=== PATIENT | female | born 1990 | race Hispanic/Latino ===

== ENCOUNTER 2017-02-04 07:35 | Emergency (ER) | payer BC, SELFPAY ==
--- NOTE | 2017-02-04 08:39 | RAD ---
THREE VIEWS OF THE LEFT ANKLE: INDICATION: Ankle injury yesterday. FINDINGS: No acute fracture or subluxation is present. Ankle mortise and talar dome are preserved. There is mild soft tissue swelling overlying the lateral aspect of the ankle. IMPRESSION: No acute osseous abnormality. POS: [facility]
== END 2017-02-04 08:42 | disposition home or self-care (01) ==
LOC: ERS 07:35
DX: S93.402A Sprain of unspecified ligament of left ankle, initial encounter (principal); F17.210 Nicotine dependence, cigarettes, uncomplicated; X50.1XXA Overexertion from prolonged static or awkward postures, initial encounter

== ENCOUNTER 2018-02-08 23:39 | Emergency (ER) | payer BC ==
[2018-02-09 00:11] LABS: #Basophils 0.1 thou/uL (0.0-0.2); #Eosinphils 0.2 thou/uL (0.0-0.7); #Lymphocytes 4.7 thou/uL (1.20-3.40); #Monocytes 0.6 thou/uL (0.11-0.59); %Basophils 0.5 % (0.0-1.0); %Eosinophils 1.7 % (0.0-10.0); %Lymphocytes 36.9 % (21.0-51.0); %Monocytes 5.1 % (0.0-10.0); %Neutrophils 55.8 % (42.0-75.0); Hemoglobin 13.6 g/dL (12.0-16.0); Mean Corpuscular HGB CONC 33.2 g/dL (32.0-36.0); Mean Corpuscular Hemoglobin 30.5 pg (27.0-31.0); Mean Platelet Volume 8.3 fL (7.4-10.4); Platelet Count 264 thou/uL (130-400); RBC Distribution Width 12.3 % (11.5-14.5); Red Blood Cell (RBC) Count 4.44 mill/uL (4.20-5.40); White Blood Cell (WBC) Count 12.6 thou/uL (4.8-10.8)
[2018-02-09 00:33] LABS: ALT (SGPT) 15 U/L (8-55); AST (SGOT) 12 U/L (5-34); Albumin 3.9 g/dL (3.5-5.0); Alkaline Phosphatase 69 U/L (40-150); Anion Gap 9 mmol/L (10-20); BUN (Urea Nitrogen) 11 mg/dL (7.0-18.7); Bilirubin, Total 0.2 mg/dL (0.2-1.2); Calc. Creatinine Clearance 0 mL/min (70-130); Carbon Dioxide 27 mmol/L (22-29); Chloride 107 mmol/L (98-107); Estimated GFR-MDRD Greater than 90; Globulin 2.8 g/dL (2.4-3.5); Glucose 95 mg/dL (70-105); Potassium 3.9 mmol/L (3.5-5.1); Protein, Total 6.7 g/dL (6.0-8.3); Sodium 139 mmol/L (136-145)
[2018-02-09 02:04] LABS: Bilirubin Negative (Negative); Blood, Urine Small (Negative); Clarity TURBID (Clear); Glucose, Urine (Dipstick) Negative (Negative); Leukocyte Negative (Negative); Nitrite Negative (Negative); Protein, Urine (Dipstick) Negative (Neg-Trace); Specific Gravity, Urine 1.018 (1.002-1.036); Urobilinogen 0.2 mg/dL (0.2-1.0); pH, Urine 7.5 (5.0-9.0)
[2018-02-09 02:07] LABS: Bacteria/HPF Rare-Few HPF (None Seen); Hyaline Casts/LPF 0-3 HYALINE CAST LPF (0-3 Hyaline); Pathc Cast-AUWi Flag 0.29 (0-2.49); Squamous Epithelial 0-3 HPF (0-3); WBC/HPF 0-3 HPF (0-3)
[2018-02-09 02:26] LABS: Crystals/HPF 1+ AMORPH PHOS HPF (Negative); RBC/HPF 0-3 HPF (0-3)
--- NOTE | 2018-02-09 07:39 | ULT ---
PELVIC ULTRASOUND WITH CELIS SCALE AND DOPPLER COLOR FLOW IMAGING TRANSVAGINAL PELVIC ULTRASOUND PERFORMED: Date: 02/09/18 CLINICAL HISTORY: Vaginal bleeding. FINDINGS: Within the uterus, there is an oval-shaped region of decreased echogenicity indicating gestational sa c with internal pole, which corresponds to an approximately 6 week/2 days gestation. No c ardiac activity is present. There is no significant abnormality of either visualized ovary. IMPRESSION: Findings indicative of an early intrauterine gestation, approximately 6 weeks/2 days of gestational a ge on the basis of crown-rump length. No cardiac activity is elicited, which is concerning for a failed first trimester . Recommend correlation with beta HCG values and clinical assessmen t. As necessary short-term imaging follow-up may be obtained, as well, for confirmation. CODE T. POS: [facility]
== END 2018-02-09 02:45 | disposition home or self-care (01) ==
LOC: ERS 23:39
DX: O20.0 Threatened abortion (principal); F17.210 Nicotine dependence, cigarettes, uncomplicated; O99.331 Smoking (tobacco) complicating pregnancy, first trimester; Z3A.10 10 weeks gestation of pregnancy
CPT/HCPCS: 36415; 76856; 80053; 81003; 81015; 84702; 85025; 86900; 86901

== ENCOUNTER 2018-11-27 17:30 | Day surgery (SDC) | payer BC, OTHER ==
[2018-11-27 18:14] VITALS: BMI 39.4
[2018-11-27 18:41] LABS: Clarity Clear (Clear); Glucose, Urine (Dipstick) Normal (Negative); Leukocyte Negative Leu/uL (Negative); Nitrite Negative (Negative); Protein, Urine (Dipstick) Negative (Neg-Trace); Urobilinogen Normal mg/dL (Less than 2)
[2018-11-27 18:42] LABS: Bacteria/HPF 1+ HPF (None Seen); Bilirubin Negative (Negative); Blood, Urine Negative (Negative); RBC/HPF 0-3 HPF (0-3); WBC/HPF 0-3 HPF (0-3)
[2018-11-27 18:48] LABS: Hemoglobin 12.5 g/dL (12.0-16.0); Mean Corpuscular HGB CONC 35.2 g/dL (32.0-36.0); Mean Corpuscular Hemoglobin 30.5 pg (27.0-31.0); Mean Corpuscular Volume 86.7 fL (78.0-98.0); Platelet Count 206 thou/uL (130-400); RBC Distribution Width 12.2 % (11.5-14.5); Red Blood Cell (RBC) Count 4.09 mill/uL (4.20-5.40); White Blood Cell (WBC) Count 10.4 thou/uL (4.8-10.8)
[2018-11-27 19:08] LABS: ALT (SGPT) Less than 7 U/L (8-55); AST (SGOT) 7 U/L (5-34); Albumin 3.2 g/dL (3.5-5.0); Alkaline Phosphatase 164 U/L (40-150); Anion Gap 12 mmol/L (10-20); BUN (Urea Nitrogen) 5 mg/dL (7.0-18.7); Bilirubin, Total 0.2 mg/dL (0.2-1.2); Calc. Creatinine Clearance 236 mL/min (70-130); Calcium 9.5 mg/dL (7.8-10.44); Carbon Dioxide 23 mmol/L (22-29); Chloride 107 mmol/L (98-107); Estimated GFR-MDRD Greater than 90; Globulin 3.2 g/dL (2.4-3.5); Glucose 83 mg/dL (70-105); Potassium 3.6 mmol/L (3.5-5.1); Protein, Total 6.4 g/dL (6.0-8.3); Sodium 138 mmol/L (136-145)
--- NOTE | 2018-11-28 07:58 | SS ---
DATE OF ADMISSION: 11/27/2018 DATE OF DISCHARGE: 11/27/2018 REGULAR PHYSICIAN: Bettie Mares MD EVALUATING PHYSICIAN: Jf Garcia MD. CHIEF COMPLAINT: Elevated blood pressure at work. HISTORY OF PRESENT ILLNESS: Ms. Vincent is a 28-year-old , AB4 with an estimated date of confinement of 01/18/2019, who presents complaining of elevated blood pressure at work to 164/103. 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 She has had an intermittent headache, but denies visual changes or right upper quadrant pain. She reports active movement. Her care has been with Dr. Bettie Mares and has been uncomplicated. PAST OBSTETRICAL HISTORY: Four miscarriages. PAST MEDICAL HISTORY: None. PAST SURGICAL HISTORY: Appendectomy and cholecystectomy. CURRENT MEDICATIONS: vitamins. ALLERGIES: NO KNOWN ALLERGIES. SOCIAL HISTORY: Denies tobacco, alcohol, or drug use. FAMILY HISTORY: Unremarkable. REVIEW OF SYSTEMS: Denies nausea, vomiting, fever, chills, right upper quadrant pain, or vaginal bleeding. PHYSICAL EXAMINATION: VITAL SIGNS: Serial blood pressures are 111/66, 110/65, and 105/60. GENERAL: She is pleasant and in no acute distress. ABDOMEN: Soft, nontender, and gravid. heart rate tracing is reassuring with spontaneous accelerations. No decelerations were seen. No regular uterine activity is seen. LABORATORY DATA: White count 10.4, hemoglobin and hematocrit 12.5 and 35.5, platelet count 206,000. BUN 5, creatinine 0.55, total bilirubin 0.2, AST 7, ALT less than 7. Urinalysis shows a specific gravity of 1.009 and it is negative for protein, negative for ketones, negative for blood, negative nitrites, negative for leukocyte esterase. ASSESSMENT: 1. A 32 and 4/7th week intrauterine . 2. No evidence of preeclampsia at this time. PLAN: The patient will be dismissed to home. Preeclampsia precautions were again reviewed with her in detail. She states she has an appointment with Dr. Mares next week. Dr. Mares was notified of this evaluation. Job ID: [id number]
== END 2018-11-27 20:35 | disposition home or self-care (01) ==
LOC: L&D/OP 17:30
PROVIDERS: ATTEND Obstetrics & Gynecology
DX: O99.89 Other specified diseases and conditions complicating pregnancy, childbirth and the puerperium (principal); R03.0 Elevated blood-pressure reading, without diagnosis of hypertension; R51 Headache; Z3A.32 32 weeks gestation of pregnancy
CPT/HCPCS: 36415; 80053; 81003; 85027; 99283

== ENCOUNTER 2019-01-09 11:35 | Inpatient (IN) | payer BC, OTHER ==
[2019-01-09] MEDS ORDERED: hydrALAZINE 20 MG/ML VIAL SLOW IVP PRN (11:49)
[2019-01-09] MEDS ORDERED: Lidocaine 1% (PF) 30 ML VIAL SC PRN (11:49)
[2019-01-09] MEDS ORDERED: Ondansetron PF 4 MG/2 ML Vial IVP PRN (11:49)
[2019-01-09] MEDS ORDERED: HYDROcodone/Acetaminophen 5/325 mg Tablet PO PRN ×2 (11:49)
[2019-01-09] MEDS ORDERED: Docusate 100 MG CAP PO PRN (11:49)
[2019-01-09] MEDS ORDERED: Ibuprofen 800 MG TAB PO PRN (11:49)
[2019-01-09] MEDS ORDERED: NS / Oxytocin 40 units/1000ml 1,000 ML IV PRN (11:49)
[2019-01-09] MEDS ORDERED: Promethazine HCl 25 MG/ML VIAL IM PRN (11:49)
[2019-01-09] MEDS ORDERED: NS w/ Oxytocin 10 units 500 ML IV SCH (12:00)
[2019-01-09] MEDS: Lactated Ringer's 1,000 ML IV SCH ×2 (12:06→19:00)
[2019-01-09 12:18] VITALS: BMI 42.0
[2019-01-09 12:36] LABS: Hemoglobin 12.9 g/dL (12.0-16.0); Mean Corpuscular HGB CONC 34.7 g/dL (32.0-36.0); Mean Corpuscular Hemoglobin 29.9 pg (27.0-31.0); Mean Corpuscular Volume 86.1 fL (78.0-98.0); Mean Platelet Volume 10.4 fL (7.4-10.4); Platelet Count 186 thou/uL (130-400); RBC Distribution Width 13.1 % (11.5-14.5); Red Blood Cell (RBC) Count 4.31 mill/uL (4.20-5.40); White Blood Cell (WBC) Count 9.2 thou/uL (4.8-10.8)
[2019-01-09 13:16] LABS: HBSAg Index 0.13 S/CO (0-0.99); Hep B Surf Ag Non-Reactive S/CO (NonReactive); Syphilis Antibody Nonreactive (Nonreactive); Syphilis Antibody Index 0.03 S/CO (<1.00 Non-Reactive)
[2019-01-09] MEDS: Butorphanol Tartrate 1 MG/ML VIAL SLOW IVP PRN (22:51)
[2019-01-10] MEDS: Butorphanol Tartrate 1 MG/ML VIAL SLOW IVP PRN ×2 (00:19→02:29)
[2019-01-10] MEDS: Lactated Ringer's 1,000 ML IV SCH ×4 (02:55→17:50)
[2019-01-10] MEDS ORDERED: Fentanyl 4 mcg/Bup 0.1% Cadd 100 ML ONE (03:06)
[2019-01-10] MEDS ORDERED: Bicitra 30 ML UDCUP ONE (08:34)
[2019-01-10] MEDS ORDERED: CEFAZOLIN 2 GM in Premix Bag 1 BAG IVPB SCH (09:00)
[2019-01-10] MEDS ORDERED: Ketorolac Tromethamine 30 MG/ML VIAL ONE ×2 (09:10→14:18)
[2019-01-10] MEDS ORDERED: Ondansetron PF 4 MG/2 ML Vial ONE ×2 (09:10→14:18)
[2019-01-10] MEDS ORDERED: Lidocaine 2% 10 ML INJ ONE (09:10)
[2019-01-10] MEDS ORDERED: Dexamethasone 4 mg/ml Vial ONE (09:10)
[2019-01-10] MEDS ORDERED: PHENYLEPHRINE-NS 100 MCG/ML 10 ML SYRINGE ONE (09:12)
[2019-01-10] MEDS ORDERED: MORPHINE 5 MG/10 ML PF VIAL ONE (09:12)
[2019-01-10] MEDS ORDERED: diphenhydrAMINE 50 MG/ML VIAL ONE ×2 (09:29→14:18)
[2019-01-10] MEDS ORDERED: Oxytocin 10 UNITS/ML VIAL ONE (09:31)
[2019-01-10] MEDS ORDERED: Fentanyl 100 MCG/2 ML VIAL ONE (09:35)
[2019-01-10] MEDS ORDERED: Ketamine 50 MG/ML (10ML VIAL) ONE (09:36)
[2019-01-10] MEDS ORDERED: Midazolam HCl 2 mg/2 ml Vial ONE (09:50)
[2019-01-10] MEDS ORDERED: Bupivacaine 0.25% HCL 30 ML VIAL ONE (10:06)
[2019-01-10] MEDS ORDERED: Bupivacaine/Epinephrine 0.5% 10 ML VIAL ONE (10:12)
[2019-01-10] MEDS ORDERED: diphenhydrAMINE 50 MG/ML VIAL IVP PRN (10:17)
[2019-01-10] MEDS ORDERED: L&D-Morphine 4 MG/ML VIAL SLOW IVP PRN (10:17)
[2019-01-10] MEDS ORDERED: HYDROmorphone 2 MG/ML VIAL SLOW IVP PRN (10:17)
[2019-01-10] MEDS ORDERED: Promethazine HCl 25 MG/ML VIAL IM PRN (10:17)
[2019-01-10] MEDS ORDERED: Ondansetron PF 4 MG/2 ML Vial IVP PRN (10:17)
[2019-01-10] MEDS ORDERED: Meperidine HCl/PF 25 MG/ML VIAL SLOW IVP PRN (10:17)
[2019-01-10] MEDS ORDERED: Naloxone HCl 0.4 mg/ml Vial IV PRN (10:17)
[2019-01-10] MEDS ORDERED: Ondansetron HCl/PF 4 MG/2 ML Vial IVP PRN (10:17)
[2019-01-10] MEDS ORDERED: Promethazine HCl 25 MG SUPP PR PRN (10:17)
[2019-01-10] MEDS ORDERED: Naloxone HCl 0.4 mg/ml Vial IVP PRN ×2 (10:17)
[2019-01-10] MEDS ORDERED: Communication Order-Pharmacy FS SCH (10:30)
[2019-01-10] MEDS ORDERED: hydrALAZINE 20 MG/ML VIAL SLOW IVP PRN (11:09)
[2019-01-10] MEDS ORDERED: Adacel (T-DAP) 0.5 ML SYRINGE IM ONE (11:09)
[2019-01-10] MEDS ORDERED: HYDROcodone/Acetaminophen 5/325 mg Tablet PO PRN (11:09)
[2019-01-10] MEDS: Ampicillin 2 GM in Sodium Chloride 0.9% 100 ML IVPB SCH ×2 (12:40→17:50)
[2019-01-10] MEDS: Gentamicin Sulfate 360 MG in Sodium Chloride 0.9% 100 ML IVPB SCH (13:54)
[2019-01-10] MEDS ORDERED: Ibuprofen 800 MG TAB PO SCH (14:00)
[2019-01-10] MEDS ORDERED: Dexamethasone 20 MG/5 ML VIAL ONE (14:18)
[2019-01-10] MEDS: Ketorolac Tromethamine 30 MG/ML VIAL IVP SCH ×2 (14:47→17:51)
--- NOTE | 2019-01-10 17:37 | OP ---
DATE OF PROCEDURE: 01/10/2019 PREOPERATIVE DIAGNOSES: 1. A 29-year-old, G4, P0-0-3-0, at 39+2 with induction of labor. 2. Premature rupture of membranes, that is prolonged. The patient reports possible rupture on 01/06. 3. GBS negative. 4. 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 POSTOPERATIVE DIAGNOSES: 1. A 29-year-old, G4, P0-0-3-0, at 39+2 with induction of labor. 2. Premature rupture of membranes, that is prolonged. The patient reports possible rupture on 01/06. 3. GBS negative. 4. 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 5. Live born female with Apgars of 8 and 9 at 1 and 5 minutes respectively. 6. Chorioamnionitis by odor with fluid rupture and amniotomy. 7. Arrest of descent and dilation. 8. Non-reassuring for heart tracing. ANESTHESIA: Epidural with combination re-dose. SURGEON: Bettie Mares MD. TEACHER VOCAL: Rosi Pierre DO. ESTIMATED BLOOD LOSS: 1500 mL. QUANTITATIVE BLOOD LOSS: 1425 mL. CLINICAL HISTORY: This patient is a 29-year-old, G4, P0-0-3-0, who presented as a direct admission from the office for rupture of membranes. The patient was evaluated by the office staff and had a positive test, but noted that she had started seeing some leakage of fluid on 01/06. She was admitted on 01/09 and was noted to have a forebag, this was ruptured, for clear fluid without any odor. The patient was afebrile. She was placed on Pitocin and her cervical exam was 1.5, 80% effaced, and -2 station. The patient progressed with seemingly adequate contractions. She had a desire for no epidural, and when she was rechecked, was noted to be unchanged. An IUPC was placed and noted adequate contractions. The patient continued to be afebrile and have clear fluid. She was allowed to continue, and during the process of placing the IUPC, her cervix was stretchy to 4 cm. She eventually requested an epidural for maternal analgesia, and upon the subsequent check, she was 5 cm, however, from that 2 a.m. check to approximately 8:30 in the morning, she did not make any change despite adequate contractions. The patient was counseled on an arrest of descent and need for a section. She also was having a category 1 to category 2 tracing with intermittent late decelerations and minimal to moderate variability. The risks, benefits, and possible complications were discussed and the patient wished to proceed. DETAILS OF PROCEDURE: The patient was taken to the operating room where her epidural was redosed. She was tested for adequate anesthesia and anesthesia was noted to be moderate. The incision was made on the lower pelvic brim border in a Pfannenstiel manner after the patient was prepped and draped in the usual sterile fashion. This incision was taken down to the fascia. The fascia was nicked in the midline and extended out bilaterally with sharp and blunt dissection. The Yonathan clamps were used x2 to elevate the rectus muscles off the superior border, and in similar fashion, the pyramidalis and rectus muscles were released off the inferior portion. The abdominal muscles were in the midline. The patient noted discomfort on her left side, and anesthesia was given to make her more comfortable. Once the peritoneum was breached, this incision was extended with traction and sharp dissection and Bovie cautery. The bladder blade was placed. The bladder flap was then created and reduced down deflecting the bladder away from the incision. The incision with a new scalpel was made over the uterine surface in the lower uterine segment and carried down to the amnion. Clear fluid was again noted. The incision was then extended and the surgeon's hand was placed into the incision and the infant was delivered through the incision. The posterior shoulder followed by the anterior shoulder followed by the remainder of the infant's body was delivered. There was noted to be a cord around the neck and arm and the baby delivered through this. The infant cried spontaneously. The cord was doubly clamped and cut. The was stimulated and sent off to the neonatology team in attendance to the delivery. A cord gas was obtained and the cord blood was taken. It was noted that there was an odor consistent with chorioamnionitis in the amniotic fluid. Cord gas was recorded as 7.276 with the pCO2 was 52.9. The base excess and bicarb were pending at the time of dictation. The placenta was manually removed and sent for pathology. The uterus was then exteriorized and cleansed of all debris. Two ring forceps were placed over the uterine incision that was bleeding profusely. The uterine incision was then closed with a running locking fashion and then several [id number] were placed to control bleeding. Once the bleeding stopped, the gutters were cleansed of all debris. The bladder flap was then reapproximated in a running fashion with excellent hemostasis, and then the Seprafilm was placed over this anterior surface of the uterus. The uterus was placed back into the abdomen and the peritoneum was closed in a running fashion. The rectus muscles were then closed and reapproximated with [id number] sutures, and irrigation was performed over the rectus muscles. There was still bleeding from perforating blood vessels noted, so these were cauterized with the Bovie cautery. The fascia was then closed in a running fashion with excellent hemostasis, and the subcutaneous tissues were then copiously irrigated. They were then reapproximated with 2-0 plain interrupted sutures, and the skin was then closed with a 4-0 Navjot needle with excellent hemostasis. The incision was reinforced with a Steri-Strips and Mastisol, and the pressure dressing was placed over the incision. The patient tolerated the procedure well and was able to recover in her labor room in satisfactory condition. The needle, sponge, lap, and instrument counts were correct x2 at the end of the procedure. There were no other issues surrounding this delivery. The patient was transferred to her recovery room and started on ampicillin and gentamicin for coverage for chorioamnionitis. There were no other issues with this procedure. Job ID: [id number]
[2019-01-10] MEDS: Ferrous Sulfate 325 MG TAB PO SCH (21:45)
[2019-01-10] MEDS: Docusate Calcium (SURFAK) 240 MG CAP PO SCH (21:47)
[2019-01-11] MEDS: Ketorolac Tromethamine 30 MG/ML VIAL IVP SCH ×2 (00:30→06:18)
[2019-01-11] MEDS: Ampicillin 2 GM in Sodium Chloride 0.9% 100 ML IVPB SCH ×2 (00:30→06:28)
[2019-01-11] MEDS: Lactated Ringer's 1,000 ML IV SCH ×3 (06:21→21:01)
[2019-01-11] MEDS: Simethicone Chewable 80 MG TAB PO PRN ×2 (06:25→19:45)
[2019-01-11 07:16] LABS: Hemoglobin 9.3 g/dL (12.0-16.0); Mean Corpuscular HGB CONC 34.4 g/dL (32.0-36.0); Mean Corpuscular Hemoglobin 30.7 pg (27.0-31.0); Mean Corpuscular Volume 89.1 fL (78.0-98.0); Mean Platelet Volume 9.8 fL (7.4-10.4); Platelet Count 167 thou/uL (130-400); RBC Distribution Width 13.3 % (11.5-14.5); Red Blood Cell (RBC) Count 3.04 mill/uL (4.20-5.40); White Blood Cell (WBC) Count 18.3 thou/uL (4.8-10.8)
[2019-01-11 07:28] LABS: Anion Gap 12 mmol/L (10-20); BUN (Urea Nitrogen) 7 mg/dL (7.0-18.7); Calc. Creatinine Clearance 236 mL/min (70-130); Calcium 8.4 mg/dL (7.8-10.44); Carbon Dioxide 21 mmol/L (22-29); Chloride 106 mmol/L (98-107); Estimated GFR-MDRD Greater than 90; Glucose 82 mg/dL (70-105); Potassium 3.8 mmol/L (3.5-5.1); Sodium 135 mmol/L (136-145)
[2019-01-11] MEDS: Ferrous Sulfate 325 MG TAB PO SCH ×2 (09:22→21:34)
[2019-01-11] MEDS: Docusate Calcium (SURFAK) 240 MG CAP PO SCH ×2 (09:49→21:34)
[2019-01-11] MEDS: Prenatal Vitamin 1 TAB PO SCH (09:49)
[2019-01-11] MEDS: HYDROcodone/Acetaminophen 5/325 mg Tablet PO PRN ×2 (12:49→22:28)
[2019-01-11] MEDS: Gentamicin Sulfate 360 MG in Sodium Chloride 0.9% 100 ML IVPB SCH (12:50)
[2019-01-11] MEDS: Ibuprofen 800 MG TAB PO SCH ×2 (14:15→21:34)
[2019-01-11] MEDS: Lanolin Ointment 7 GM TUBE TOP PRN (19:45)
[2019-01-12] MEDS: Simethicone Chewable 80 MG TAB PO PRN (01:23)
[2019-01-12] MEDS: Lanolin Ointment 7 GM TUBE TOP PRN (01:31)
[2019-01-12] MEDS: Lactated Ringer's 1,000 ML IV SCH ×2 (04:11→11:35)
[2019-01-12] MEDS: HYDROcodone/Acetaminophen 5/325 mg Tablet PO PRN ×2 (04:18→13:53)
[2019-01-12] MEDS: Ibuprofen 800 MG TAB PO SCH ×2 (05:44→13:41)
[2019-01-12] MEDS: Docusate Calcium (SURFAK) 240 MG CAP PO SCH (09:24)
[2019-01-12] MEDS: Prenatal Vitamin 1 TAB PO SCH (09:24)
[2019-01-12] MEDS: Ferrous Sulfate 325 MG TAB PO SCH (09:25)
[2019-01-12 11:36] VITALS: BP 100/55; TEMP 97.9
== END 2019-01-12 18:25 | disposition home or self-care (01) | DRG 786 ==
LOC: L&D-LIB 11:35 → 3SE 01-10 19:08
PROVIDERS: ADMIT Obstetrics & Gynecology; ATTEND Obstetrics & Gynecology
PROC: 10D00Z1 Extraction of Products of Conception, Low, Open Approach (ICD-10-PCS; principal; 2019-01-10)
PROC: 3E033VJ Introduction of Other Hormone into Peripheral Vein, Percutaneous Approach (ICD-10-PCS; 2019-01-10)
DX: O76 Abnormality in fetal heart rate and rhythm complicating labor and delivery (principal); O41.1230 Chorioamnionitis, third trimester, not applicable or unspecified; D62 Acute posthemorrhagic anemia; Z37.0 Single live birth; O62.1 Secondary uterine inertia; Z3A.39 39 weeks gestation of pregnancy; O99.02 Anemia complicating childbirth
CPT/HCPCS: 36415; 51702; 80048; 80170; 82805; 85027; 86780; 86850; 86900; 86901; 87340; 88307; J0290; J0595; J0690; J1100; J1200; J1580; J1885; J2001; J2250; J2274; J2405; J2590; J3010; J3490; S0020

== ENCOUNTER 2020-05-23 02:48 | Emergency (ER) | payer BC, OTHER ==
--- NOTE | 2020-05-23 09:03 | RAD ---
LEFT SHOULDER 3 VIEWS: HISTORY: Left shoulder pain. FINDINGS/IMPRESSION: No fracture, dislocation, or other significant acute osseous process. POS: OFF
== END 2020-05-23 05:02 | disposition home or self-care (01) ==
LOC: ERS 02:48
DX: M25.512 Pain in left shoulder (principal); F17.210 Nicotine dependence, cigarettes, uncomplicated
CPT/HCPCS: 93005

== ENCOUNTER 2021-02-15 21:59 | Emergency (ER) | payer OTHER ==
[2021-02-15 22:49] LABS: Bacteria/HPF None Seen HPF (None Seen); Bilirubin Negative (Negative); Blood, Urine 3+ (Negative); Clarity Clear (Clear); Glucose, Urine (Dipstick) Normal (Negative); Ketone, Urine Negative (Negative); Leukocyte Negative Leu/uL (Negative); Nitrite Negative (Negative); Protein, Urine (Dipstick) 20 mg/dL (Neg-Trace); RBC/HPF Greater than 50 HPF (0-3); Squamous Epithelial 0-3 HPF (0-3); Urobilinogen Normal mg/dL (Less than 2); WBC/HPF 0-3 HPF (0-3); pH, Urine 6.5 (5.0-9.0)
[2021-02-15 22:50] LABS: Pregnancy Test - Urine (BHCG) Negative (Negative); Pregu Control Background? CLEAR/WHITE (CLR/WHITE); Pregu Control Bar Appear? YES (CONTROL BAR)
[2021-02-15 22:58] LABS: #Eosinphils 0.2 thou/uL (0.0-0.7); #Lymphocytes 4.1 thou/uL (1.20-3.40); #Monocytes 0.5 thou/uL (0.11-0.59); #Neutrophils 6.7 thou/uL (1.40-6.50); %Basophils 0.4 % (0.0-1.0); %Eosinophils 2.1 % (0.0-10.0); %Lymphocytes 35.2 % (21.0-51.0); %Monocytes 4.6 % (0.0-10.0); %Neutrophils 57.6 % (42.0-75.0); Mean Corpuscular HGB CONC 32.8 g/dL (32.0-36.0); Mean Corpuscular Hemoglobin 29.3 pg (27.0-31.0); Mean Corpuscular Volume 89.3 fL (78.0-98.0); Mean Platelet Volume 8.7 fL (7.4-10.4); Platelet Count 238 thou/uL (130-400); RBC Distribution Width 12.2 % (11.5-14.5); Red Blood Cell (RBC) Count 4.79 mill/uL (4.20-5.40); White Blood Cell (WBC) Count 11.6 thou/uL (4.8-10.8)
[2021-02-15 23:07] LABS: ALT (SGPT) 22 U/L (8-55); AST (SGOT) 12 U/L (5-34); Albumin 4.1 g/dL (3.5-5.0); Alkaline Phosphatase 96 U/L (40-110); Anion Gap 11 mmol/L (10-20); BUN (Urea Nitrogen) 17 mg/dL (7.0-18.7); Bilirubin, Total 0.2 mg/dL (0.2-1.2); Calc. Creatinine Clearance 0 mL/min (70-130); Calcium 9.4 mg/dL (7.8-10.44); Carbon Dioxide 28 mmol/L (22-29); Chloride 107 mmol/L (98-107); Glucose 117 mg/dL (70-105); Potassium 4.2 mmol/L (3.5-5.1); Protein, Total 7.1 g/dL (6.0-8.3); Sodium 142 mmol/L (136-145)
[2021-02-15] MEDS ORDERED: Ondansetron PF 4 MG/2 ML Vial ONE (23:39)
[2021-02-15] MEDS ORDERED: Ketorolac Tromethamine 30 MG/ML VIAL ONE (23:39)
== END 2021-02-16 01:25 | disposition home or self-care (01) ==
LOC: ERS 21:59
DX: N13.2 Hydronephrosis with renal and ureteral calculous obstruction (principal); R11.2 Nausea with vomiting, unspecified; Z87.891 Personal history of nicotine dependence
CPT/HCPCS: 36415; 74176; 80053; 81003; 81015; 81025; 85025; 96374; 96375; J1885; J2405